=== PATIENT | male | born 1950 | race Caucasian/White ===

== ENCOUNTER 2016-06-11 10:54 | Day surgery (SDC) | payer OTHER ==
[2016-06-07 11:32] LABS: HEMATOCRIT 40.1 % (40.0-51.0); HEMOGLOBIN 12.9 g/dL (13.6-17.8)
[2016-06-07 11:35] LABS: BUN (BLOOD UREA NITROGEN) 13 MG/DL (6-23); CALCIUM, SERUM 9.5 MG/DL (8.5-10.4); CHLORIDE, SERUM 108 MMOL/L (96-112); CO2 (CARBON DIOXIDE) 28 MMOL/L (24-34); CREATININE 1.63 MG/DL (0.70-1.30); GFR AFRICAN AMERICAN 50 ML/MIN (>=60); GFR NON AFRICAN AMERICAN 43 ML/MIN (>=60); GLUCOSE, SERUM 93 MG/DL (60-99); POTASSIUM, SERUM 4.8 MMOL/L (3.5-5.3); SODIUM, SERUM 143 MMOL/L (135-148)
--- NOTE | ~2016-06-11 | OP ---
Record Of Operation [facility] [address] [place]. [address] NAME: NAOMI GABRIEL : 48 STATUS : REG [facility] PAT#: [id number] AGE: 65 ADM/REG DATE : 06/11/16 MR#: [id number] REPORT SERV DATE: 06/11/16 DICTATED BY: Ponce ROSAS DATE: 06/11/16 REPORT STATUS : Draft TRANSCRIBED BY: MODL DATE: 06/11/16 DATE OF PROCEDURE: 06/11/2016 PREOPERATIVE DIAGNOSIS: Large right proximal ureteral stone. POSTOPERATIVE DIAGNOSIS: Large right proximal ureteral stone, impacted. PROCEDURE: Cystoscopy, removal of right double-J stent, right retrograde pyelography, rigid ureteroscopy, laser lithotripsy, basket stone extraction, and stent placement. SURGEON: Ponce Rosas M.D. ANESTHESIA: General endotracheal. COMPLICATIONS: None. DRAINS: A 7-Belgian x 24 cm Contour double-J stent. BRIEF HISTORY: Mr. Gabriel is a 65-year-old white male, with a fairly recalcitrant proximal ureteral stone. He underwent ESWL in early March, followed by stent placement that was difficulty indicating stone impaction, followed by right ESWL retreatment in 05/20/2016. He is here for definitive management by ureteroscopy with lithotripsy. The risks of bleeding, infection, anesthesia, injury to adjacent organs, inability to remove all stone, need for continued stenting. There were no unanswered questions. DESCRIPTION OF PROCEDURE: Under excellent general anesthesia, the patient was prepped and draped in standard lithotomy position. Cystoscopy was performed with a 30-degree lens, and revealed a normal anterior urethra. The posterior urethra showed some trilobar BPH. Inspection of bladder revealed a stent emanating from the right orifice with quite a lot of stent reaction. I removed the stent with ease. I then inserted a 5-Belgian open-ended catheter back into the ureteral orifice and through it an angled Glidewire was advanced past the stone. And into the collecting system. It appeared that there was a straight shot, so, I inserted a long rigid scope and indeed I could encounter this stone directly, it appeared to have a lot of mucosa surrounding it indicating impaction, and in fact during the case it was seen that a part of the stone especially medially was adherent to the ureteral wall. I used a 200 micron laser and using the dusting settlement, I was able to completely fragment the stone into either passable or extractable pieces, I removed several pieces for analysis, reinspected the area, all impacted stone had been removed. There were only small fragments in the ureter. I looked all the way up to the UPJ and saw no additional large fragments fluoroscopically there were none either. I then left the collecting system dilutely opacified, retrofitted the wire into the cystoscope, and placed a 7-Belgian x 24 cm Contour double-J stent. This was a little different than his previous stent and perhaps he tolerated better. I plan to discharge Mr. Gabriel as an outpatient with the following instructions. DISCHARGE INSTRUCTIONS: Record Of Operation [address] [place]. [address] NAME: NAOMI GABRIEL : 48 STATUS : [facility] PAT#: [id number] AGE: 65 ADM/REG DATE : 06/11/16 MR#: [id number] REPORT SERV DATE: 06/11/16 DICTATED BY: Ponce ROSAS DATE: 06/11/16 REPORT STATUS : Draft TRANSCRIBED BY: KORTNEY DATE: 06/11/16 1. Home today. 2. Pyridium 200 mg one p.o. t.i.d. p.r.n. bladder pain #15 with three refills. 3. Percocet 5/325 one to two p.o. q.4 hours p.r.n. pain, #25. 4. Follow up in my office in eight to 10 days with a KUB. If I see no significant residual fragments, we will consider cysto stent removal that day versus other options. NICOLE/KORTNEY Ponce Rosas M.D. / [id number] CC: Gorge Lutz M.D.
[~2016-06-11 10:54] MED LIST: ASA5GR PO; ASAB PO; ASCRIPTIN PO; CHANTIX1 PO; LISINOPRIL40 MG PO; LOP25 PO; MULTIPLE VIT PO; NEXIUM40 PO; PLAVIX PO; PRILOSEC40 MG PO; PRIN10 PO; PROTONIX PO; SLOW FE160 MG PO; TUMS PO; VIAGRA100 MG PO; ZOCOR40 PO
[2016-06-14 11:37] LABS: STONE COMPOSITION TWO DNR (())
== END 2016-06-11 17:13 | disposition home or self-care (01) ==
LOC: SDC 10:54
PROC: 0T768DZ Dilation of Right Ureter with Intraluminal Device, Via Natural or Artificial Opening Endoscopic (ICD-10-PCS; 2016-06-11)
PROC: 0TP98DZ Removal of Intraluminal Device from Ureter, Via Natural or Artificial Opening Endoscopic (ICD-10-PCS; 2016-06-11)
PROC: BT1DZZZ Fluoroscopy of Right Kidney, Ureter and Bladder (ICD-10-PCS; 2016-06-11)
PROC: 0TC68ZZ Extirpation of Matter from Right Ureter, Via Natural or Artificial Opening Endoscopic (ICD-10-PCS; 2016-06-11)
PROC: 0TF68ZZ Fragmentation in Right Ureter, Via Natural or Artificial Opening Endoscopic (ICD-10-PCS; principal; 2016-06-11 12:45)
DX: N20.1 Calculus of ureter (principal); I25.10 Atherosclerotic heart disease of native coronary artery without angina pectoris; I10 Essential (primary) hypertension; E78.5 Hyperlipidemia, unspecified; K21.9 Gastro-esophageal reflux disease without esophagitis; F32.9 Major depressive disorder, single episode, unspecified; J44.9 Chronic obstructive pulmonary disease, unspecified; E78.00 Pure hypercholesterolemia, unspecified; R01.1 Cardiac murmur, unspecified; F17.210 Nicotine dependence, cigarettes, uncomplicated; Z98.890 Other specified postprocedural states; Z98.41 Cataract extraction status, right eye; Z98.42 Cataract extraction status, left eye; Z96.1 Presence of intraocular lens; Z85.828 Personal history of other malignant neoplasm of skin; Z90.89 Acquired absence of other organs; Z85.01 Personal history of malignant neoplasm of esophagus; Z92.21 Personal history of antineoplastic chemotherapy; Z92.3 Personal history of irradiation; Z79.82 Long term (current) use of aspirin; Z79.899 Other long term (current) drug therapy
CPT/HCPCS: 74420; 80048; 82365; 85014; 85018; 93005; C1758; C1769; C1874; J2250; J2405; J2710; J3010; Q9967